=== PATIENT | female | born 1985 | race Caucasian/White ===

== ENCOUNTER 2022-04-26 21:58 | Inpatient (IN) | payer SELFPAY ==
[2022-04-26] MEDS ORDERED: Sodium Chloride 0.9% 10 ML Syringe FLUSH PRN (22:10)
[2022-04-26] MEDS ORDERED: Sodium Chloride 0.9% 20 ML SDV IV PRN (22:10)
[2022-04-26] MEDS ORDERED: Misoprostol 25 MCG (1/4 of 100 MCG) Tab VAG PRN ×2 (22:10)
[2022-04-26] MEDS ORDERED: Lidocaine 1% 50 ML MDV INJECT PRN (22:10)
[2022-04-26] MEDS ORDERED: Carboprost Tromethamine 250 MCG/1 ML Amp IM PRN (22:10)
[2022-04-26] MEDS ORDERED: Sodium Chloride 0.9% 2.5 ML Syringe FLUSH PRN (22:10)
[2022-04-26] MEDS ORDERED: Misoprostol 200 MCG Tab PO PRN (22:10)
[2022-04-26] MEDS ORDERED: Tranexamic Acid 1,000 MG in Sodium Chloride 0.9% 100 ML IV PRN (22:10)
[2022-04-26] MEDS ORDERED: Terbutaline 1 MG/ML SDV SUBCUT PRN (22:10)
[2022-04-26] MEDS ORDERED: Water For Irrigation,Sterile 1,000 ML Container IRR PRN (22:10)
[2022-04-26] MEDS ORDERED: Butorphanol 1 MG/ML SDV IVPUSH PRN (22:10)
[2022-04-26] MEDS ORDERED: Methylergonovine 0.2 MG/1 ML Amp IM PRN (22:10)
[2022-04-26] MEDS ORDERED: Lactated Ringers 1,000 ML IV SCH (22:15)
[2022-04-26] MEDS ORDERED: Oxytocin/0.9 % Sodium Chloride 30 UNIT/500 ML BAG IV SCH ×2 (22:15)
[2022-04-27] MEDS ORDERED: Acetaminophen 500 MG Tab PO PRN (00:16)
[2022-04-27] MEDS ORDERED: Docusate Sodium 100 MG Cap PO PRN (00:16)
[2022-04-27] MEDS ORDERED: Ibuprofen 400 MG Tab PO PRN (00:16)
[2022-04-27] MEDS ORDERED: Lanolin 100% Cream 7 GM Tube TOP PRN (00:16)
[2022-04-27] MEDS ORDERED: Aluminum Hydroxide/Magnesium Hydroxide/Simethicone XS Susp 30 ML Cup PO PRN (00:16)
[2022-04-27] MEDS ORDERED: oxyCODONE 5 MG Tab PO PRN (00:16)
[2022-04-27] MEDS ORDERED: Bisacodyl 10 MG Supp RECTAL PRN (00:16)
[2022-04-27] MEDS ORDERED: Witch Hazel Medicated Pads 40/Jar TOP PRN (00:16)
[2022-04-27] MEDS ORDERED: Benzocaine/Menthol 20%-0.5% Spray 78 GM Cannister TOP PRN (00:16)
[2022-04-27] MEDS: Ibuprofen 800 MG Tab PO PRN ×2 (02:49→10:27)
[2022-04-27] MEDS: Acetaminophen 500 MG Tab PO PRN ×2 (04:05→18:06)
[2022-04-28] MEDS: Ibuprofen 800 MG Tab PO PRN (05:03)
== END 2022-04-28 11:55 | disposition home or self-care (01) | DRG 807 ==
LOC: MW.OBCHECK 21:58 → MW.OB 22:00 → MW.OBCHECK 22:10 → MW.OB 22:11 → OBSVTOIN 23:59 → MW.OB 04-27 03:00
PROVIDERS: ADMIT Obstetrics & Gynecology; ATTEND Obstetrics & Gynecology
PROC: 10E0XZZ Delivery of Products of Conception, External Approach (ICD-10-PCS; principal; 2022-04-26)
PROC: 10907ZC Drainage of Amniotic Fluid, Therapeutic from Products of Conception, Via Natural or Artificial Opening (ICD-10-PCS; 2022-04-26)
DX: O80 Encounter for full-term uncomplicated delivery (principal); Z37.0 Single live birth; Z3A.38 38 weeks gestation of pregnancy; Z20.822 Contact with and (suspected) exposure to COVID-19
CPT/HCPCS: 36415; 82803; 85014; 85018; 85027; 86592; 86850; 86900; 86901; 90686; A9270-GY; G0008; U0002

== ENCOUNTER 2024-05-08 00:46 | Emergency (ER) | payer SELFPAY ==
[2024-05-08] MEDS: Ondansetron 4 MG/2 ML SDV IVPUSH ONE (01:22)
[2024-05-08] MEDS: Sodium Chloride 0.9% 1,000 ML IV ONE (01:22)
[2024-05-08] MEDS: Morphine 4 MG/ML Syringe IVPUSH ONE (01:22)
[2024-05-08 01:46] LABS: A/G RATIO 0.9 (0.9-1.6); ALANINE AMINOTRANSFERASE,ALT 37 IU/L (14-63); ALBUMIN 3.4 g/dL (3.4-5.0); ALKALINE PHOSPHATASE 72 U/L (46-116); ASPARTATE AMNIOTRANSFERASE,AST 17 IU/L (15-37); BILIRUBIN TOTAL 0.5 mg/dL (0.2-1.0); BLOOD UREA NITROGEN,BUN 11 mg/dL (7.0-18.0); CALCIUM 9.1 mg/dL (8.5-10.1); CARBON DIOXIDE,CO2 26.8 mmol/L (21.0-32.0); CHLORIDE,CL 105 mmol/L (98-107); CREATININE 0.8 mg/dL (0.6-1.0); GLUCOSE RANDOM 107 mg/dL (74-106); LIPASE 41 U/L (16-77); POTASSIUM,K 3.8 mmol/L (3.5-5.1); PROTEIN TOTAL,TP 7.3 g/dL (6.4-8.2); SODIUM,NA 141 mmol/L (136-145)
[2024-05-08 01:48] LABS: ESTIMATED GFR 97 mL/min (>60)
[2024-05-08 02:00] LABS: BASOPHILS ABSOLUTE AUTO 0.06 K/uL (0.00-0.20); BASOPHILS PERCENT AUTO 0.6 % (0.0-1.0); EOSINOPHILS PERCENT AUTO 6.5 % (0.0-6.0); HEMOGLOBIN 14.3 g/dL (12.0-16.0); IMMATURE GRAN ABSOLUTE AUTO 0.03 K/uL (0.00-0.05); IMMATURE GRAN PERCENT AUTO 0.3 % (0.0-0.4); LYMPHOCYTES ABSOLUTE AUTO 3.26 K/uL (1.00-4.80); LYMPHOCYTES PERCENT AUTO 30.2 % (24.0-44.0); MEAN CORPUSCULAR HEMOGLOBIN 31.4 pg (28.0-32.0); MEAN CORPUSCULAR HGB CONC 34.9 g/dL (32.0-36.0); MEAN CORPUSCULAR VOLUME 90.1 fL (83.0-99.0); MEAN PLATELET VOLUME 10.4 fL (9.4-12.3); MONOCYTES ABSOLUTE AUTO 1.06 K/uL (0.00-0.80); MONOCYTES PERCENT AUTO 9.8 % (0.0-8.0); NEUTROPHILS ABSOLUTE AUTO 5.69 K/uL (1.80-7.70); NEUTROPHILS PERCENT AUTO 52.6 % (41.0-71.0); PLATELET COUNT,PLT 303 K/uL (150-400); RED BLOOD CELL COUNT 4.55 M/uL (4.10-5.30)
[2024-05-08] MEDS: Iopamidol 755 MG/ML 500 ML Multipack Bottle IVPUSH ONE (02:17)
[2024-05-08 02:58] LABS: APPEARANCE,URINE SLT CLOUDY; BILIRUBIN,URINE NEGATIVE (NEGATIVE); COLOR,URINE YELLOW; GLUCOSE,URINE NEGATIVE (NEGATIVE); KETONES,URINE NEGATIVE (NEGATIVE); LEUKOCYTE ESTERASE,URINE NEGATIVE (NEGATIVE); NITRITE,URINE NEGATIVE (NEGATIVE); OCCULT BLOOD,URINE LARGE (NEGATIVE); PROTEIN,URINE NEGATIVE (NEGATIVE); UROBILINOGEN,URINE 0.2 EU/dL (<2.0)
[2024-05-08 03:11] LABS: BACTERIA,URINE FEW (NEGATIVE); CALCIUM OXALATE CRYSTALS,URINE FEW (NEGATIVE); EPITHELIAL CELLS,URINE FEW (NONE-FEW)
[2024-05-08 03:12] LABS: MUCUS,URINE LIGHT (NONE-MOD)
== END 2024-05-08 03:55 | disposition home or self-care (01) ==
LOC: MW.ED 00:46
DX: K29.70 Gastritis, unspecified, without bleeding (principal); K80.20 Calculus of gallbladder without cholecystitis without obstruction; N20.2 Calculus of kidney with calculus of ureter; Z88.5 Allergy status to narcotic agent
CPT/HCPCS: 36415; 74177; 80053; 81001; 83690; 84703; 85025; 96361; 96374; 96375; 99284; J2270; J2405; J7030; Q9967; 99283

== ENCOUNTER 2024-05-09 08:26 | Emergency (ER) | payer SELFPAY ==
[2024-05-09] MEDS: Ketorolac 30 MG/ML SDV IVPUSH ONE (09:04)
[2024-05-09] MEDS: Sodium Chloride 0.9% 1,000 ML IV ONE (09:04)
[2024-05-09] MEDS: Ondansetron 4 MG/2 ML SDV IVPUSH ONE (09:04)
[2024-05-09 09:12] LABS: COLOR,URINE YELLOW; GLUCOSE,URINE NEGATIVE (NEGATIVE); KETONES,URINE NEGATIVE (NEGATIVE); LEUKOCYTE ESTERASE,URINE TRACE (NEGATIVE); NITRITE,URINE POSITIVE (NEGATIVE); OCCULT BLOOD,URINE LARGE (NEGATIVE); PROTEIN,URINE 30 mg/dL (NEGATIVE)
[2024-05-09 09:15] LABS: APPEARANCE,URINE SLT CLOUDY; BILIRUBIN,URINE SMALL (NEGATIVE)
[2024-05-09 09:17] LABS: BASOPHILS ABSOLUTE AUTO 0.03 K/uL (0.00-0.20); BASOPHILS PERCENT AUTO 0.2 % (0.0-1.0); EOSINOPHILS ABSOLUTE AUTO 0.18 K/uL (0.00-0.45); EOSINOPHILS PERCENT AUTO 1.3 % (0.0-6.0); HEMATOCRIT 42.9 % (37.0-47.0); HEMOGLOBIN 14.4 g/dL (12.0-16.0); IMMATURE GRAN ABSOLUTE AUTO 0.06 K/uL (0.00-0.05); IMMATURE GRAN PERCENT AUTO 0.4 % (0.0-0.4); LYMPHOCYTES PERCENT AUTO 10.5 % (24.0-44.0); MEAN CORPUSCULAR HEMOGLOBIN 30.6 pg (28.0-32.0); MEAN CORPUSCULAR HGB CONC 33.6 g/dL (32.0-36.0); MEAN CORPUSCULAR VOLUME 91.3 fL (83.0-99.0); MONOCYTES ABSOLUTE AUTO 0.54 K/uL (0.00-0.80); NEUTROPHILS ABSOLUTE AUTO 11.18 K/uL (1.80-7.70); NEUTROPHILS PERCENT AUTO 83.6 % (41.0-71.0); PLATELET COUNT,PLT 305 K/uL (150-400); WHITE BLOOD CELL COUNT,WBC 13.39 K/uL (3.9-11.3)
[2024-05-09 09:25] LABS: RBC,URINE 40-50 (0-2/HPF)
[2024-05-09 09:26] LABS: BACTERIA,URINE 1+ (NEGATIVE); MUCUS,URINE LIGHT (NONE-MOD); SQUAMOUS EPITHELIAL CELLS,UR FEW
[2024-05-09 09:37] LABS: CALCIUM 8.6 mg/dL (8.5-10.1); CARBON DIOXIDE,CO2 28.3 mmol/L (21.0-32.0); CREATININE 0.8 mg/dL (0.6-1.0); EST CRCL DRUG DOSING (CG) 82.33 mL/min; POTASSIUM,K 3.9 mmol/L (3.5-5.1)
[2024-05-09] MEDS: Tamsulosin 0.4 MG Cap.ER PO ONE (09:56)
[2024-05-09] MEDS: cefTRIAXone 2 GM in Sodium Chloride 0.9% 50 ML IV ONE (09:56)
== END 2024-05-09 11:30 ==
LOC: MW.ED 08:26
DX: N20.1 Calculus of ureter (principal); N30.01 Acute cystitis with hematuria; Z88.6 Allergy status to analgesic agent; Z79.899 Other long term (current) drug therapy
CPT/HCPCS: 36415; 80048; 81001; 85025; 87086; 96361; 96365; 96375; 99285; A9270; J0696; J1885; J2405; J3490; J7030